=== PATIENT | female | born 1950 | race Caucasian/White ===

== ENCOUNTER 2017-03-20 09:57 | Outpatient (CLI) ==
[2015-07-03 14:39] VITALS: BMI 29.2
--- NOTE | 2017-03-20 10:20 | DI ---
EXAM: PA and lateral views of the chest HISTORY: Acute bronchitis COMPARISON: Chest x-ray 07/03/2015 FINDINGS: The cardiomediastinal silhouette is normal. There is no pneumothorax or pleural effusion. There is no consolidation, nodule or mass. There is mild lower lobe airway thickening and ground-gl ass. The osseous structures are unremarkable. IMPRESSION: Lower lobe small airways thickening may represent inflammation versus infection.
== END 2017-03-20 09:58 | disposition home or self-care (01) ==
LOC: RAD 09:57
PROVIDERS: ATTEND Internal Medicine
DX: J20.9 Acute bronchitis, unspecified (principal)